=== PATIENT | female | born 1995 ===

== ENCOUNTER → 2022-04-20 11:52 | Outpatient (CLI) | payer SELFPAY ==
--- NOTE | ~2022-04-20 | US_ITS ---
US breast RT complete DATE: 04/20/2022 12:12 INDICATION: Right breast erythema, pain, itchiness TECHNIQUE: Real-time. Imaging of complete right breast including all 4 quadrants and subareolar area COMPARISON: None FINDINGS: At 7:00 4 cm from the nipple there is a parallel circumscribed 2.5 x 3.8 x 4.0 mm hypoechoi c area with through transmission posterior enhancement, benign in appearance. No suspicious mass or suspicious shadowing is detected. IMPRESSION: BI-RADS Category 2: Benign Recommendation: None Reviewed, dictated and finalized at [facility]. Reviewed, dictated and finalized at [facility].
== END ==
PROVIDERS: PCP Nurse Practitioner; Visit Provider Nurse Practitioner
DX: N64.59 Other signs and symptoms in breast (principal)
CPT/HCPCS: 76641